=== PATIENT | female | born 1955 | race Caucasian/White ===

== ENCOUNTER 2017-05-24 13:59 | Emergency (ER) | payer OTHER, SELFPAY ==
[2017-05-24 14:02] VITALS: BP 112/67; PULSE 85; RESP 18; TEMP 37.2; O2SAT 94; BMI 25.9
--- NOTE | 2017-05-24 15:50 | RAD_ITS ---
STUDY: X-RAY CHEST REASON FOR EXAM: Female, 61 years old. Cough and sore throat. TECHNIQUE: Frontal and lateral views of the chest. COMPARISON: None. FINDINGS: The lungs are clear and expanded. There is no demonstrated pleural abnormality. Normal size heart. Normal mediastinum and sanjuanita. Normal visualized pulmonary arteries. Normal visualized aortic arch and descending thoracic aorta. There are diffuse degenerative changes of the visualized thoracic spine. Normal visualized ribs, clavicles, and shoulders. There is no demonstrated abnormality of the visualized soft tissue structures of the upper abdomen. RAD/Chest PA and Lateral IMPRESSION: Normal x-ray examination of the chest. Electronically Signed: Kali Fitch MD at 16:32 EST , Service support ,
[2017-05-24] MEDS: Ibuprofen 400 MG Tablet 800 MG PO (16:07)
[2017-05-24 16:08] VITALS: RESP 14
--- NOTE | 2017-05-24 17:04 | ED.VISSUMM ---
- ER Visit Summary Date of Service: 05/24/17 Chief Complaint: Flulike symptoms History of Present Illness: The patient is a 61 F who states her brother has influenza. She states she is visiting from [place]. Patient states that she is developed cough rhinorrhea body aches fever headache chills. She notes no lung pathology. No chronic illnesses. No immunosuppression. Physical Examination: Afebrile vital signs are stable Gen: Well-nourished well-developed Head: Normocephalic atraumatic Eyes: Perrl EOMI ENT: TMs clear rhinorrhea moist mucous membranes Neck: Supple no lymphadenopathy no JVD nontender CVS: Regular rate rhythm no murmurs normal S1-S2 Respiratory: No distress clear to auscultation bilaterally chest nontender Abdomen: Soft nontender nondistended normal bowel sounds no masses Back: Nontender Extremity: Nontender no edema Skin: Normal color no rash Neuro: alert orientated ?3 CN II-XII intact normal strength sensation reflexes gait cerebellar Psych: Normal affect normal mood Test Results: Chest x-ray is clear. Influenza swab negative. Emergency Department Course and Treatment: She will be discharged home with supportive care. She will have Tylenol with codeine for cough. Ibuprofen for fevers. Return if worsening. Fluid hydration encouraged. Impression: 1. Influenza-like illness This note was generated with [employer] dictation software. It may contain incorrect words, spelling, and punctuation that were not noted in review of the chart prior to signing ED Disposition - Plan for ED Patient: Disposition: Home or Assisted Living Chief Complaint: Cough Instructions: ED Viral Syndrome Prescriptions: Acetaminophen/Codeine Liquid [Tylenol W/Cod Liq 300-30MG/12.5ML] 12.5 ml PO Q6H PRN #250 ml PRN Reason: Cough Referrals: [facility] Doctor,Out of [Primary Care Provider] -
[2017-05-24 17:15] VITALS: BP 114/60; PULSE 79; RESP 16; TEMP 37.3; O2SAT 92
== END 2017-05-24 17:16 | disposition home or self-care (01) ==
PROVIDERS: Emergency Provider Emergency Medicine
DX: B34.9 Viral infection, unspecified (principal); R68.83 Chills (without fever); R61 Generalized hyperhidrosis; J34.89 Other specified disorders of nose and nasal sinuses; R05 Cough; M79.1 Myalgia; R51 Headache; E03.9 Hypothyroidism, unspecified; Z90.710 Acquired absence of both cervix and uterus; Z72.0 Tobacco use
CPT/HCPCS: 71046; 87804; 99283